=== PATIENT | male | born 1995 | race Caucasian/White ===

== ENCOUNTER 2022-09-11 21:25 | Emergency (ER) | payer OTHER, SELFPAY ==
[2022-09-11 21:26] VITALS: BP 134/96; PULSE 99; RESP 15; TEMP 36.6; O2SAT 96; BMI 28.8
--- NOTE | 2022-09-11 21:36 | EX.ED.UPPERE ---
HPI History of Present Illness Chief Complaint: Upper Extremity Injury Detail of Chief Complaint: Fall with injury to left shoulder Informant: patient Narrative Narrative: Patient presents to the emergency department with injury to his left shoulder. Patient states that he was helping a friend and fell down a flight of steps. Patient denies losing consciousness or striking his head. Patient states that he hit the top of the shoulder on a rail at the bottom of the steps. Patient is right-hand dominant. Denies other injuries. Has been ambulatory. Denies neck pain or chest pain or abdominal pain. PFSH PFSH Medical History no medical history Allergy/AdvReac Type Severity Reaction Status Date / Time Sulfa (Sulfonamide Allergy Hives Verified 09/11/22 21:29 Antibiotics) Surgical History no surgical history Social History Smoking Status: Current some day smoker tobacco type: smokeless tobacco ROS ROS ED Review of Systems ROS Unobtainable: other Constitutional Constitutional ED: Reports lethargy; Denies chills, fever(s), sweats or weight loss Eyes Eyes: Denies blurry vision, change in vision or diplopia ENT ENT ED: Denies rhinorrhea or sore throat Cardiovascular Cardiovascular: Denies chest pain, orthopnea or racing heartbeat Respiratory/Chest Respiratory/Chest: Denies cough, dyspnea, dyspnea on exertion, orthopnea or sputum Gastrointestinal Gastrointestinal: Denies abdominal pain, diarrhea, nausea or vomiting Genitourinary Genitourinary ED: Denies dysuria, hematuria or urinary frequency Musculoskeletal Musculoskeletal: Reports other Details: Left shoulder pain/injury ; Denies arthralgias, back pain, myalgias or neck pain Integumentary Denies abscess, Abrasions or rash Neurologic Neurologic: Denies headache(s) or weakness Psychiatric Psychiatric: Denies anxiety, depression or suicidal thoughts Endocrine Endocrinology: Denies polydipsia, polyphagia or polyuria Hematologic/Lymphatic Hematologic/Lymphatic: Denies easy bleeding, easy bruising or lymphadenopathy Allergic/Immunologic Allergic/Immunologic ED: Denies mouth swelling, tongue swelling or urticaria EXAM Physical Exam Const Vital Signs: 09/11/22 21:26 Temperature 97.9 F Temperature Source Temporal Pulse Rate 99 Respiratory Rate 15 Blood Pressure 134/96 H Blood Pressure Mean 108 Pulse Ox 96 Oxygen Delivery Method Room Air Positive well nourished and well developed General Appearance ED: well developed and NAD HEENT Reports TM's clear and moist mucous membranes normocephalic and atraumatic; Negative for trauma or tenderness Tympanic Membrane ED: Yes TM's clear Eyes PERRL and EOMs intact bilaterally General Eye ED: Negative for pale conjunctiva or scleral icterus Neck no lymphadenopathy, supple and no JVD General: Negative for tenderness Chest Wall inspection of chest normal and palpation of chest normal Chest: Negative for tenderness Resp normal respiratory effort and clear to auscultation bilaterally Effort and Inspection: Negative for respiratory distress or pain with movement Auscultation: Negative for rhonchi, wheezes or diminished lung sounds Cardio regular rate, regular rhythm, S1 normal heart sound, S2 normal heart sound and no murmurs Peripheral Pulses: pulses 2+ throughout GI normal to inspection, nondistended, normoactive bowel sounds, soft to palpation, non-tender, non-distended and no masses Back/Spine no CVA tenderness and no thoracic nor lumbar tenderness Extremity normal to inspection Extremity Narrative: Left shoulder-patient has erythema and some faint ecchymosis over the mid clavicle with tenderness to palpation. There are some soft tissue swelling. No pain at the glenohumeral joint. No evidence of sulcus sign or shoulder dislocation. Neurovascularly intact distally. General Extremety ED: Negative for edema General Extremity: Negative for edema Neuro oriented x3, CN's II-XII intact bilaterally, no sensory deficits noted and gait normal Sensorium / Orientation: awake, alert, oriented to person, oriented to place and oriented to time Motor Exam: strength 5/5 throughout and strength abnormal Psych mental status grossly normal Skin no rashes or lesions noted and no wounds MDM MDM MDM Narrative Medical decision making narrative: Patient presents with a fall and injury to the left shoulder. X-rays of the clavicle showed no fractures. I will give him a sling for comfort. He is to use ibuprofen or Tylenol for discomfort. He is to use ice to the area. Patient to follow-up with his primary care physician in 5 to 7 days. Radiography Diagnostic Testin view x-rays of left clavicle obtained interpreted by myself as no acute fractures or dislocation of the glenohumeral joint. Official report from radiology pending. Discharge Plan Triage Chief Complaint: Upper Extremity Injury ED Provider: Renan Wilkinson Dx/Rx/DC Orders Clinical Impression: Contusion of left shoulder Instructions: ED Contusion, Upper Extremity, ED Shoulder Contusion Referrals: Adelso Monsalve DO [Non-Staff] - 5-7 Days Activity Restrictions/Additional Instructions: Follow-up with your family doctor in 5 to 7 days. Disposition Disposition: Home, Self Care
--- NOTE | 2022-09-11 21:38 | RAD_ITS ---
EXAM: XR LEFT CLAVICLE COMPLETE, 2 OR MORE VIEWS CLINICAL INDICATION: injury TECHNIQUE: Frontal and lordotic views of the left clavicle. COMPARISON: No relevant prior studies available. FINDINGS: BONES/JOINTS: Unremarkable. No acute fracture. No subluxation. Normal alignment. Preservation of the joint space. No sclerotic or destructive changes observed. SOFT TISSUES: Unremarkable. No soft tissue swelling or gas. No radiopaque foreign body. RAD/Clavicle IMPRESSION: Negative left clavicle x-rays. Electronically Signed: Rich Loza MD at 21:57 EDT ,
== END 2022-09-11 22:13 | disposition home or self-care (01) ==
LOC: ED 22:04
PROVIDERS: Emergency Provider Emergency Medicine; Visit Provider Emergency Medicine
DX: S40.012A Contusion of left shoulder, initial encounter (principal); F17.220 Nicotine dependence, chewing tobacco, uncomplicated; W10.9XXA Fall (on) (from) unspecified stairs and steps, initial encounter
CPT/HCPCS: 73000; 99283

== ENCOUNTER → 2024-05-28 | Outpatient (CLI) | payer OTHER, SELFPAY ==
--- NOTE | 2024-05-28 14:57 | RAD_ITS ---
PROCEDURE: SHOULDER MIN 2 VIEWS REASON FOR EXAM: Pain. TECHNIQUE: Four view right shoulder series. COMPARISON: None. RAD/Shoulder min 2 Views IMPRESSION: Minimal right acromioclavicular joint degenerative changes are noted. The right glenohumeral joint demonstrates no abnormality. No fracture, dislocation, or other acute process is seen. Reading Location: [id number]
[2024-05-28 20:19] LABS: Anion Gap 16 (5-15); BUN 11 mg/dL (4-19); BUN/Creat Ratio 10.9 RATIO (10-20); Calcium,Total 9.9 mg/dL (7.6-11.0); Carbon Dioxide 25.3 mmol/L (21.0-32.0); Chloride 102 mmol/L (98-108); Cholesterol 184 mg/dL (<=200); Creatinine, Serum 0.99 mg/dL (0.70-1.20); EST Glomerular Filtration Rate 105 (>60); Glucose 82 mg/dL (70-99); HIV Nonreactive (Nonreactive); High Density Lipoprotein 43 mg/dL; Low Density Lipoprotein Calc. 114 mg/dL; Potassium 4.1 mmol/L (3.3-5.1); Sodium Level 144 mmol/L (133-145); Triglycerides 135 mg/dL; Very Low Density Lipoprotein 27 mg/dL (5-40); cholesterol:hdl ratio screen 4.27
== END | disposition home or self-care (01) ==
LOC: MTLAB 14:54
PROVIDERS: PCP Family Medicine; Referring Provider Family Medicine; Visit Provider Family Medicine
DX: Z00.00 Encounter for general adult medical examination without abnormal findings (principal); M25.511 Pain in right shoulder
CPT/HCPCS: 36415; 73030; 80048; 80061; 86703

== ENCOUNTER 2024-06-21 07:00 | Outpatient (RCR) | payer OTHER, SELFPAY ==
--- NOTE | 2024-06-07 09:50 | HP.PTEVAL ---
Patient's Visit Information Visit Information Visit Information: ELIS MARIEE is a 29 year old M referred to Physical Therapy by Dr. Jef Mishra MD with a diagnosis of B shoulder pain. Date of Evaluation: 06/07/24 Physical Therapist: Jose De Paz, СВЕТЛАНАT, OCS, CSCS Visit Plan Frequency: 2-3x /Week Duration: 4-6 Weeks Plan: 2-3x/week for 3-6 weeks for: IE HEP : sleeper stretch, wall er stretch adn wall flexion stretch 5 sec 10x 2x/day with pics. Please treat with : 1. G-h mobs to R shoulder and PROM to R shoulder for er, ir, flexion. arm pull. pec stretch to HEP 2. RC and scap stab strength progressing to I with pics. Please do both each session Subjective Subjective: h/o dislocation R shoulder in football. Kpt playing and favored L shoulder but hurt that one too. 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 Now wakes up unablee to move R arm some days. Hard to carry groceries in du to pain. Reaching across body may pop R shoulder. Ext rotation causes pain especially abducted. R handed. Regular workouts 2-3x/week, bi tri, machines. Basic ADLs all I and without pain. 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 Activities: Life pretty normal. Has fiance. No neck problems. Pain R shoulder pain.: Pain Intensity (Out of 10): 0 Pain Intensity Range: 0 and 6 Comment: comfortable at rest. Objective Objective: Walks and transfers I today without difficulty. posture is forward head adn protracted scap minimally with apparent tightness in pecs B. - labral tests, - drop arm, - ext rotation lag test, + apprhension R, - neer, - HK all B. cervical aROM full and painfree. Shoulder AROM 155 r and 165 L flexion and abduction with tightness on R. ER R 60 adn L 70 with tight feeling at end, IR 60 R and 70 L at 90 abd and PSIS IR R with pain reaching bhind. elbow and wrist arom WFL. reflexes 2/3 bi and tri B. Sensation WNL to gross light touch B UE. Strength: er R 4-, L 4, IR 4+ B, flexion and abduction 4 R adn 4+ L, no pain. elbow flexion and ext 5/5 B, wrist and thumb 5/5 B. scap satys fairly stablee on rib cage with testing B. No winging. Balance/Special Test Scores Quick DASH Score: 27.2725 Goals Goal 1:: full symmetrical AROM shoulders R to L without tightness or pain Goal Time Frame: 4-6 Weeks Goal 2:: I appropriate HEP for Rc and scap stabs to minimize future problems Goal Time Frame: 4-6 Weeks Goal 3:: quickdash score 12 or better Goal Time Frame: 4-6 Weeks Goal 4:: pt feel pain in B shoulders 75% better at 1/10 at worst Goal Time Frame: 4-6 Weeks Rehabilitation Potential Physical Therapy Diagnosis: B shoulder instability adn R sided loss of ROM effecting comfortable function. Rehabilitation Potential: Fair Anticipated Interventions Patient/Client Instruction: Educate patient on: Condition and Plan of Care For the Purpose of:: To decrease pain, To increase ROM, To improve nutrient delivery to tissue, To improve muscle performance and motor function, To increase tolerance to activity/condition/position and To improve ability of physical actions for home/community/work/leisure Therapeutic Exercise to Include: Strength training, Flexibilty training, Passive ROM and Active ROM For the Purpose of:: To decrease pain, To increase ROM, To improve nutrient delivery to tissue and To improve muscle performance and motor function Manual Therapy Techniques to Include: Mobilization, Passive ROM and Soft tissue mobilization For the Purpose of:: To decrease pain, To increase ROM, To improve nutrient delivery to tissue and To increase tolerance to activity/condition/position Text: Thank you for the opportunity to evaluate your patient. For Medicare and Medicare HMO plans, please review the plan of care and approve it. It will need to be FAXED BACK to us at [phone] for Medicare purposes. For Medicare only, by signing this I certify the plan of care. Please let me know if there are questions or concerns regarding this plan of care. Physician Signature: Date:
--- NOTE | 2024-09-01 15:43 | HP.PT.NRP ---
Patient Information Patient Information: ELIS MARIEE was seen in my office for initial evaluation on 06/07/24. The following Plan of Care was established for this patient: POC Established Initial Frequency: 2-3x /Week Initial Duration: 4-6 Weeks Anticipated Interventions Patient/Client Instruction: Educate patient on: Condition and Plan of Care For the Purpose of:: To decrease pain, To increase ROM, To improve nutrient delivery to tissue, To improve muscle performance and motor function, To increase tolerance to activity/condition/position and To improve ability of physical actions for home/community/work/leisure Therapeutic Exercise to Include: Strength training, Flexibilty training, Passive ROM and Active ROM For the Purpose of:: To decrease pain, To increase ROM, To improve nutrient delivery to tissue and To improve muscle performance and motor function Manual Therapy Techniques to Include: Mobilization, Passive ROM and Soft tissue mobilization For the Purpose of:: To decrease pain, To increase ROM, To improve nutrient delivery to tissue and To increase tolerance to activity/condition/position Last Seen Last Seen: This patient was last seen in our office 06/21/24. Pertinent comments regarding their Physical therapy will appear below: Pt seen 6 visits of POC but cancelled next one due to sickness and did not reschedule any further visits. At this point, it has been over 2 months and I will discontinue from my care. At this point I will be discontinuing this patient from physical therapy. I would be happy to see this patient again in the future if found appropriate by the physician. Thank you! Jose De Paz, DPT, OCS, CSCS Balance/Gait/Functional tests Balance/Special Test Scores Quick DASH Score: 27.9700
== END 2024-06-21 19:00 | disposition home or self-care (01) ==
LOC: PT 07:00
PROVIDERS: PCP Family Medicine; Referring Provider Family Medicine; Visit Provider Family Medicine
DX: M25.511 Pain in right shoulder (principal); M25.512 Pain in left shoulder
CPT/HCPCS: 97110; 97140; 97161

== ENCOUNTER → 2025-02-01 | Outpatient (CLI) | payer OTHER, SELFPAY ==
--- NOTE | 2025-02-01 11:34 | RAD_ITS ---
PROCEDURE: ANKLE MIN 3 VIEWS 02/01/2025 REASON FOR EXAM: PAIN TECHNIQUE: Procedure Code: RADANK Modality: DX Procedure: ANKLE MIN 3 VIEWS Laterality: Right COMPARISON: none FINDINGS: Possible chronic deformity of the medial malleolus. No acute fractures or dislocations. No significant degenerative changes. No large joint effusion. No acute soft tissue abnormalities. No radiographic foreign body. RAD/Ankle min 3 Views IMPRESSION: Possible chronic deformity of the medial malleolus. No acute fractures or disl ocations. Reading Location: [id number]
== END | disposition home or self-care (01) ==
LOC: MTRAD 11:34
PROVIDERS: PCP Family Medicine; Referring Provider Nurse Practitioner Family; Visit Provider Nurse Practitioner Family
DX: M25.571 Pain in right ankle and joints of right foot (principal)
CPT/HCPCS: 73610

== ENCOUNTER → 2025-03-10 | Outpatient (CLI) | payer OTHER, SELFPAY ==
--- NOTE | 2025-03-10 09:01 | MRI_ITS ---
PROCEDURE: LOWER EXT JOINT ONLY (ROUTINE) 03/10/2025 REASON FOR EXAM: RIGHT ANKLE, OLD FRACTURE TECHNIQUE: MRI of the right lower Extremity. Multiplanar and multisequence images were obtained without IV contrast administration. COMPARISON: COMPARISON : Right ankle radiographs from 01 February 2025 FINDINGS: Bone Marrow: No marrow edema. Inferior malleolar corticated body which either represents an unfused ossification center or chronic, unfused fracture fragment. Mild degenerative changes Effusion: No significant effusion. Soft Tissues: The soft tissues are within normal limits. Ligaments and Tendons: Small amount of fluid is noted adjacent to the tibialis posterior tendon without complete or retracted tear. The Achilles tendon is intact. MRI/Lower Ext Joint Only (Routine) IMPRESSION: 1. No evidence of acute fracture with medial malleolar findings that suggest a chronic, unfused ossification center or remote ununited fracture. 2. Possible tibialis posterior tenosynovitis. No evidence of complete or retr acted tear. Reading Location: [id number]
--- OUTSIDE RECORDS SUMMARY | 2025-03-10 09:19 | XMS RPT_ITS | CCD ---
Author Organization [facility] Inform ion Partnership [facility] Care Team Providers Care Compotype Operator Name Role Phone Danica WILKINSON, Dr. Fuchs Primary Care Provider [phone] Danica WILKINSON, Dr. Fuchs Attending Provider Danica WILKINSON, Dr. Fuchs Referring Provider Jef Mishra Referring Unavailable Danica, Jef Attending Unavailable Jef Mishra Primary Care Unavailable Jef Mishra Primary Care Unavailable Jef Mishra Referring Unavailable Danica, Jef Attending Unavailable Danica, Jef Primary Care Unavailable Danielle DRAIN TECHNICIAN, Amy Referring Unavailable Danielle DRAIN TECHNICIAN, Amy Attending Unavailable Allergies Allergy Classification Reported Allergen(s) Allergy Type Date of Onset Reaction(s) Facility (3 sources) Sulfonamides (Antibiotic) Allergy to substance 3 [facility] (1 source) Sulfonamides (Antibiotic) Drug allergy (disorder) 3 [facility] Repository Problems Active Problems Problem Classification Problem Date Documented Da te Episodic/Chronic Other non-traumatic joint disorders (1 source) Pain in right ankle and joints of right foot; Translations: [Pain in right ankle and joints of right foot] Onset: 02-01-2025 Episodic Superficial injury; contusion (3 sources) Contusion of shoulder region; Translations: [Contusion of left shoulder, initial encounter] 09-11-2022 Episodic Past or Other Problems Problem Classification Problem Date Documented Da te Episodic/Chronic Other non-traumatic joint disorders (1 source) Pain in right shoulder; Translations: [Pain in right shoulder] Onset: 09-06-2024 Episodic Other non-traumatic joint disorders (1 source) Pain in left shoulder; Translations: [Pain in left shoulder] Onset: 09-06-2024 Episodic Results Test Name Value Interpretation Reference Range Facil ity Ankle min 3 Viewson 02-02-20 25 Ankle min 3 Views [facility] Imaging Services [address] [place] [address] Ankle min 3 Views MR#: [id number] Acct: [id number] Name: ELIS MARIEE Rep #: [id number] : 1995 M 29 From: Daniel Bianchi PCP: Dr. Jef Mishra MD Status: REG CLI Study: Ankle min 3 Views Date of Exam: 02/01/25 Exam# [id number] Ordering Dr: Amy Santos NP DRAIN TECHNICIAN-Thor PROCEDURE: ANKLE MIN 3 VIEWS 02/01/2025 REASON FOR EXAM: PAIN TECHNIQUE: Procedure Code: RADANK Modality: DX Procedure: ANKLE MIN 3 VIEWS Laterality: Right COMPARISON: none FINDINGS: Possible chronic deformity of the medial malleolus. No acute fractures or dislocations. No significant degenerative changes. No large joint effusion. No acute soft tissue abnormalities. No radiographic foreign body. RAD/Ankle min 3 Views IMPRESSION: Possible chronic deformity of the medial malleolus. No acute fractures or dislocations. Reading Location: [facility] CC: DRAIN TECHNICIAN-C Amy Santos; Dr. Jef Mishra MD Consumer Electronic Retail Specialist: Signed Normal [facility] Inital Evaluation (1) - PTon 06-07-2024 Inital Evaluation (1) - PT [facility] Physical Therapy [facility] [address] [place] [address] [address] [place] [address] / REHABILITATION SERVICES INITIAL EVALUATION MR#: [id number] Acct: [id number] Name: ELIS MARIEE Rep #: [id number] : 1995 29 From: Jose De Paz DPT, OCS, CSCS Referring Dr.: Dr. Jef Mishra MD Status: REG RCR Insurance: [employer] Patient's Visit Information Visit Information Visit Information: ELIS MARIEE is a 29 year old M referred to Physical Therapy by Dr. Jef Mishra MD with a diagnosis of B shoulder pain. Date of Evaluation: 06/07/24 Physical Therapist: Jose Baldev, DPT, OCS, CSCS Visit Plan Frequency: 2-3x /Week Duration: 4-6 Weeks Plan: 2-3x/week for 3-6 weeks for: IE HEP : sleeper stretch, wall er stretch adn wall flexion stretch 5 sec 10x 2x/day with pics. Please treat with : 1. G-h mobs to R shoulder and PROM to R shoulder for er, ir, flexion. arm pull. pec stretch to HEP 2. RC and scap stab strength progressing to I with pics. Please do both each session Subjective Subjective: h/o dislocation R shoulder in football. Kpt playing and favored L shoulder but hurt that one too. 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 Now wakes up unablee to move R arm some days. Hard to carry groceries in du to pain. Reaching across body may pop R shoulder. Ext rotation causes pain especially abducted. R handed. Regular workouts 2-3x/week, bi tri, machines. Basic ADLs all I and without pain. 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 Activities: Life pretty normal. Has fiance. No neck problems. Pain R shoulder pain.: Pain Intensity (Out of 10): 0 Pain Intensity Range: 0 and 6 Comment: comfortable at rest. Objective Objective: Walks and transfers I today without difficulty. posture is forward head adn protracted scap minimally with apparent tightness in pecs B. - labral tests, - drop arm, - ext rotation lag test, + apprhension R, - neer, - HK all B. cervical aROM full and painfree. Shoulder AROM 155 r and 165 L flexion and abduction with tightness on R. ER R 60 adn L 70 with tight feeling at end, IR 60 R and 70 L at 90 abd and PSIS IR R with pain reaching bhind. elbow and wrist arom WFL. reflexes 2/3 bi and tri B. Sensation WNL to gross light touch B UE. Strength: er R 4-, L 4, IR 4+ B, flexion and abduction 4 R adn 4+ L, no pain. elbow flexion and ext 5/5 B, wrist and thumb 5/5 B. scap satys fairly stablee on rib cage with testing B. No winging. Balance/Special Test Scores Quick DASH Score: 27.2725 Goals Goal 1:: full symmetrical AROM shoulders R to L without tightness or pain Goal Time Frame: 4-6 Weeks Goal 2:: I appropriate HEP for Rc and scap stabs to minimize future problems Goal Time Frame: 4-6 Weeks Goal 3:: quickdash score 12 or better Goal Time Frame: 4-6 Weeks Goal 4:: pt feel pain in B shoulders 75% better at 1/10 at worst Goal Time Frame: 4-6 Weeks Rehabilitation Potential Physical Therapy Diagnosis: B shoulder instability adn R sided loss of ROM effecting comfortable function. Rehabilitation Potential: Fair Anticipated Interventions Patient/Client Instruction: Educate patient on: Condition and Plan of Care For the Purpose of:: To decrease pain, To increase ROM, To improve nutrient delivery to tissue, To improve muscle performance and motor function, To increase tolerance to activity/condition/po sition and To improve ability of physical actions for home/community/work/l eisure Therapeutic Exercise to Include: Strength training, Flexibilty training, Passive ROM and Active ROM For the Purpose of:: To decrease pain, To increase ROM, To improve nutrient delivery to tissue and To improve muscle performance and motor function Manual Therapy Techniques to Include: Mobilization, Passive ROM and Soft tissue mobilization For the Purpose of:: To decrease pain, To increase ROM, To improve nutrient delivery to tissue and To increase tolerance to activity/condition/po sition Text: Thank you for the opportunity to evaluate your patient. For Medicare and Medicare HMO plans, please review the plan of care and approve it. It will need to be FAXED BACK to us at [phone] for Medicare purposes. For Medicare only, by signing this I certify the plan of care. Please let me know if there are questions or concerns regarding this plan of care. Physician Signature: Date : 06/07/24 0950 CC: Dr. Jef Mishra MD EBG Signed Normal [facility] Anion gap in Serum or Plasma Ordered By: Jef Mishra on 05-28-2024 Anion gap [Moles/Vol] 16 mmol/L High 5-15 [facility] BUN/creatinine ratioOrdered By: Jef Mishra on 05-28-2024 Urea nitrogen/Creatinine [Mass ratio] 10.9 mg/mg - [facility] Basic Metabolic Profile (BMP )on 05-28-2024 BUN/CRE 10.9 RATIO Normal - [facility] Comment on above: Performed By: #### L 3890.6006, L500.4100, L500.2500 #### [facility] [address] [place], [address] Calcium [Mass/Vol] 9.9 mg/dL Normal 7.6-11.0 [facility] Comment on above: Performed By: #### L 3890.6006, L500.4100, L500.2500 #### [facility] [address] [place], [address] Chloride [Moles/Vol] 102 mmol/L Normal 98-108 [facility] Comment on above: Performed By: #### L 3890.6006, L500.4100, L500.2500 #### [facility] [address] [place], [address] CO2 [Moles/Vol] 25.3 mmol/L Normal 21.0-32.0 [facility] Comment on above: Performed By: #### L 3890.6006, L500.4100, L500.2500 #### [facility] [address] [place], [address] Creatinine [Mass/Vol] 0.99 mg/dL Normal 0.70-1.20 [facility] Comment on above: Performed By: #### L 3890.6006, L500.4100, L500.2500 #### [facility] [address] [place], [address] GAP 16 High - [facility] Comment on above: Performed By: #### L 3890.6006, L500.4100, L500.2500 #### [facility] [address] [place], [address] GFR/1.73 sq M.predicted among non-blacks MDRD (S/P/Bld) [Vol rate/Area] 105 mL/min/{1.73_m2} Normal >60 [facility] Comment on above: Result Comment: mL/m in/1.73m2 CKD-EPI Creatinine Equation (2020) Performed By: #### L 3890.6006, L500.4100, L500.2500 #### [facility] [address] [place], [address] Glucose [Mass/Vol] 82 mg/dL Normal 70-99 [facility] Comment on above: Performed By: #### L 3890.6006, L500.4100, L500.2500 #### [facility] [address] [place], [address] Potassium [Moles/Vol] 4.1 mmol/L Normal 3.3-5.1 [facility] Comment on above: Performed By: #### L 3890.6006, L500.4100, L500.2500 #### [facility] [address] [place], [address] Sodium [Moles/Vol] 144 mmol/L Normal 133-145 [facility] Comment on above: Performed By: #### L 3890.6006, L500.4100, L500.2500 #### [facility] [address] [place], [address] Urea nitrogen [Mass/Vol] 11 mg/dL Normal 4-19 [facility] Comment on above: Performed By: #### L 3890.6006, L500.4100, L500.2500 #### [facility] [address] [place], [address] Calculated very low density lipoprotein (VLDL) cholesterol measurementOrdered By: Jef Mishra on 05-28-2024 Calculated very low density lipoprotein (VLDL) cholesterol measurement 27 mg/dL 5-40 [facility] VLDL Cholesterol 27 mg/dL 5-40 [facility] Carbon dioxide, total [Moles /volume] in Central venous bloodOrdered By: Jef Mishra on 05-28-2024 CO2 [Moles/Vol] 25.3 mmol/L 21.0-32.0 [facility] Chloride assayOrdered By: Gonzales Mishra on 05-28-2024 Chloride [Moles/Vol] 102 mmol/L 98-108 [facility] GFR/1.73 sq M.predicted lu g non-blacks MDRD (S/P/Bld) [Vol rate/Area]Ordered By: Jef Mishra on 05-28-2024 Estimated GFR (MDRD) Non-Af Amer [address] [facility] Comment on above: mL/min/1.73m2 CKD-EP I Creatinine Equation (2020) Glomerular filtration rate ( GFR) estimation/1.73 sq m using serum, plasma, or whole bOrdered By: Jef Mishra on 05-28-2024 GFR/1.73 sq M.predicted among non-blacks MDRD (S/P/Bld) [Vol rate/Area] 105 mL/min/{1.73_m2} >60 [facility] Comment on above: mL/min/1.73m2 CKD-EP I Creatinine Equation (2020) L3890.6006on 05-28-2024 HIV Non-Reactive Normal Nonreactive [facility] Comment on above: Result Comment: Non- Reactive Reactive Repeatedly reactive samples must be confirmed according to CDC recommended confirmatory algorithms. The subresults for either HIVAG or AHIV can be used as an aid in the selection of the confirmation algorithm for reactive samples. Send out specimens with Reactive results to [facility] for confirmation. Order the HIV antibody detection and differentiation: lc#[id number] Performed By: #### L 3890.6006, L500.4100, L500.2500 #### [facility] [place], [address] LDL calc ser/plasOrdered By: Jef Mishra on 05-28-2024 Cholesterol in LDL [Mass/Vol] 114 mg/dL [facility] Comment on above: Konsigvhuo=631-933 m g/dL & Higher Hlrg=020 mg/dL or greater LDL Cholesterol, Calculated 114 mg/dL [facility] Comment on above: Tkjucrzsyf=091-894 m g/dL & Higher Kloe=097 mg/dL or greater Lipid Profileon 05-28-2024 CHOL:HDL 4.[address] [facility] Comment on above: Performed By: #### L 3890.6006, L500.4100, L500.2500 #### [facility] [address] [place], [address] Cholesterol [Mass/Vol] 184 mg/dL Normal <=200 [facility] Comment on above: Result Comment: Chol esterol level, Desirable <200 mg/dL Borderline high cholesterol 200-239 mg/dL High cholesterol >=240 mg/dL Recommendations of the NCEP Adult Treatment Panel for the following risk-cutoff thresholds for the [place] population. Performed By: #### L 3890.6006, L500.4100, L500.2500 #### [facility] [address] [place], [address] Cholesterol in HDL [Mass/Vol] 43 mg/dL Normal [facility] Comment on above: Result Comment: Ariana onal Cholesterol Education Program (NCEP) guidelines: <40 mg/dL: Low HDL-cholesterol (major risk factor for CHD) >= 60 mg/dL: High HDL-cholesterol (negative risk factor for CHD) HDL-cholesterol is affected by a number of factors, e.g. smoking, exercise, hormones, sex and age. Performed By: #### L 3890.6006, L500.4100, L500.2500 #### [facility] [address] [place], [address] Cholesterol in LDL [Mass/Vol] 114 mg/dL Normal [facility] Comment on above: Result Comment: Bord yzrqra=086-474 mg/dL Higher Itfp=924 mg/dL or greater Performed By: #### L 3890.6006, L500.4100, L500.2500 #### [facility] [address] [place], [address] Cholesterol in VLDL [Mass/Vol] 27 mg/dL Normal 5-40 [facility] Comment on above: Performed By: #### L 3890.6006, L500.4100, L500.2500 #### [facility] [address] [place], [address] Triglyceride [Mass/Vol] 135 mg/dL Normal [facility] Comment on above: Result Comment: The drugs N-Acetylcysteine and Metamizole may falsely depress this assay. Normal range: <150 mg/dL Borderline High: 150-199 mg/dL High: 200-499 mg/dL Very High: >500 mg/dL Performed By: #### L 3890.6006, L500.4100, L500.2500 #### [facility] [address] [place], [address] No Panel InformationOrdered By: Jef Mishra on 05-28-2024 HIV (1&2) Antibody Non-Reactive Nonreactive [facility] Comment on above: Non-ReactiveReactive Repeatedly reactive samples must be confirmed according to CDC recommended confirmatory algorithms. The subresults for either HIVAG or AHIV can be used as an aid in the selection of the confirmation algorithm for reactive samples.Send out specimens with Reactive results to [facility] for confirmation.Order the HIV antibody detection and differentiation: #[id number] Potassium (Unsp spec) [Mass/ Vol]Ordered By: Jef Mishra on 05-28-2024 Potassium [Moles/Vol] 4.1 mmol/L 3.3-5.1 [facility] Potassium measurement (mass/ volume)Ordered By: Jef Mishra on 05-28-2024 Potassium (Unsp spec) [Mass/Vol] 4.1 mmol/L 3.3-5.1 [facility] Screening total cholesterol/ high density lipoprotein (HDL) cholesterol ratioOrdered By: Jef Mishra on 05-28-2024 Cholesterol.total/Chol esterol in HDL [Mass ratio] 4.27 {ratio} [facility] Serum creatinine measurement (mass/volume)Ordered By: Jef Mishra on 05-28-2024 Creatinine [Mass/Vol] 0.99 mg/dL 0.70-1.20 [facility] Serum glucose measurement (m ass/volume)Ordered By: Jef Mishra on 05-28-2024 Glucose [Mass/Vol] 82 mg/dL 70-99 [facility] Serum or plasma calcium pramod urement (mass/volume)Ordered By: Jef Mishra on 05-28-2024 Calcium [Mass/Vol] 9.9 mg/dL 7.6-11.0 [facility] Serum or plasma cholesterol in HDL measurement (mass/volume)Ordered By: Jef Mishra on 05-28-2024 Cholesterol in HDL [Mass/Vol] 43 mg/dL >40 [facility] Comment on above: National Cholesterol Education Program (NCEP) guidelines:<40 mg/dL: Low HDL-cholesterol (major risk factor for CHD)>= 60 mg/dL: High HDL-cholesterol (negative risk factor for CHD)HDL-cholesterol is affected by a number of factors, e.g. smoking, exercise, hormones, sex and age. Serum or plasma cholesterol measurement (mass/volume)Ordered By: Jef Mishra on 05-28-2024 Cholesterol [Mass/Vol] 184 mg/dL <201 [facility] Comment on above: Cholesterol level, D esirable <200 mg/dLBorderline high cholesterol 200-239 mg/dLHigh cholesterol >=240 mg/dLRecommendations of the NCEP Adult Treatment Panel for the following risk-cutoff thresholds for the [place] population. Serum or plasma urea nitroge n measurement (mass/volume)Ordered By: Jef Mishra on 05-28-2024 Urea nitrogen [Mass/Vol] 11 mg/dL 4-19 [facility] Shoulder min 2 Viewson 05-28 Shoulder min 2 Views [facility] Imaging Services [address], [place] [address] Shoulder min 2 Views MR#: [id number] Acct: [id number] Name: ELIS MARIEE Rep #: [id number] : 1995 M 29 From: Mckinley Bianchi PCP: Dr. Jef Mishra MD Status: REG CLI Study: Shoulder min 2 Views Date of Exam: 05/28/24 Exam# [id number] Ordering Dr: Jef Mishra MD PROCEDURE: SHOULDER MIN 2 VIEWS REASON FOR EXAM: Pain. TECHNIQUE: Four view right shoulder series. COMPARISON: None. RAD/Shoulder min 2 Views IMPRESSION: Minimal right acromioclavicular joint degenerative changes are noted. The right glenohumeral joint demonstrates no abnormality. No fracture, dislocation, or other acute process is seen. Reading Location: [address] CC: Dr. Jef Mishra MD Consumer Electronic Retail Specialist: Signed Normal [facility] Sodium levelOrdered By: Jef Mishra on 05-28-2024 Sodium [Moles/Vol] 144 mmol/L 133-145 [facility] Triglycerides measurementOrd ered By: Jef Mishra on 05-28-2024 Triglyceride [Mass/Vol] 135 mg/dL <199 [facility] Comment on above: The drugs N-Acetylcy steine and Metamizole may falsely depress this assay. Normal range: <150 mg/dLBorderline High: 150-199 mg/dLHigh: 200-499 mg/dLVery High: >500 mg/dL Vital Signs Date Time Vital Sign Value Performing Clinician Miranda davis 09-11-2022 21:26-0400 Body height 167.64 cm [facility] 09-11-2022 21:26-0400 Body mass index (BMI) [Ratio] 28.8 kg/m2 [facility] 09-11-2022 21:26-0400 Body temperature 97.9 [degF] [facility] 09-11-2022 21:26-0400 Body weight 81.19 kg [facility] 09-11-2022 21:26-0400 Diastolic blood pressure 96 mm[Hg] [facility] 09-11-2022 21:26-0400 Heart rate 99 /min [facility] 09-11-2022 21:26-0400 Respiratory rate 15 /min [facility] 09-11-2022 21:26-0400 SaO2% (BldA) [Mass fraction] 96 % [facility] 09-11-2022 21:26-0400 Systolic blood pressure 134 mm[Hg] [facility] Encounters Encounter Date Encounter Type Care Provider Facility Start: 02-01-2025 ambulatory Jef Mishra Facility:[facility] Start: 06-21-2024 End: 06-21-[address] Jef Mishra MD Work Phone: [facility] Work Phone: Start: 06-21-2024 End: 06-21-[address] Jef Mishra MD -Physical Therapy Work Phone: Start: 06-10-2024 Encounter for genera l adult medical examination without abnormal findings Jef Mishra [facility] Start: 06-09-[address] Jef morales MD -Physical Therapy Work Phone: Start: 05-28-2024 End: 05-28-[address] Jef Mishra MD Work Phone: [facility] Work Phone: Start: 05-28-2024 End: 05-28-[address] Jef Mishra MD -Laboratory, [place] Work Phone: Start: 05-28-2024 End: 05-28-2024 ambulatory Jef Mishra Facility:[facility] Start: 09-11-2022 End: 09-11-2022 Emergency department patient visit [facility]-Emergency Department Procedures Date Procedure Procedure Detail Performing Clinician Start: 05-28-2024 Plain X-ray of shoulder Dr. Jef Mishra MD Work Phone: Start: 09-11-2022 Plain X-ray of clavicle Plan of Treatment Date Care Activity Detail Author Patient Education ED Contusion, Upper Extremity ED Shoulder Contusion [facility] Work Phone: Patient referral [facility] Work Phone: Payers Date Payer Category Payer Self-pay 2022 [facility] ( and others) [id number] Unknown [id number] Unknown [id number] Unknown [id number] Social History Date Type Detail Facility Start: 09-11-2022 Tobacco smoking stat [facility] Unknown if ever smoked [facility] Start: 1995 Sex Assigned At Male [facility] Start: 09-11-2022 Tobacco smoking stat [facility] Current some day smoker [facility] Start: 06-10-2024 Sex Male (finding) [facility] Discharge summary 09-01-2024 Note Date & Type Note Facility 09-01-2024 Discharge summary Note Date/Time September 01, 2024 3:43pm [facility] [address] [place] [address]. [address] [place] [address] / REHABILITATION SERVICES DISCHARGE SUMMARY MR#: [id number] Acct: [id number] Name: ELIS MARIEE Rep #: [id number] : 1995 29 From: Jose De Paz DPT, OCS, CSCS Referring Dr.: Dr. Jef Mishra MD Status: REG R Insurance: [employer] S[employer]F [employer] INSURANCE Patient Information Patient Information: ELIS MARIEE was seen in my office for initial evaluation on 06/07/24. The following Plan of Care was established for this patient: POC Established Initial Frequency: 2-3x /Week Initial Duration: 4-6 Weeks Anticipated Interventions Patient/Client Instruction: Educate patient on: Condition and Plan of Care For the Purpose of:: To decrease pain, To increase ROM, To improve nutrient delivery to tissue, To improve muscle performance and motor function, To increase tolerance to activity/condition/position and To improve ability of physical actions for home/community/work/leisure Therapeutic Exercise to Include: Strength training, Flexibilty training, PassiveROM and Active ROM For the Purpose of:: To decrease pain, To increase ROM, To improve nutrient delivery to tissue and To improve muscle performance and motor function Manual Therapy Techniques to Include: Mobilization, Passive ROM and Soft tissue mobilization For the Purpose of:: To decrease pain, To increase ROM, To improve nutrient delivery to tissue and To increase tolerance to activity/condition/position Last Seen Last Seen: This patient was last seen in our office 06/21/24. Pertinent comments regardingtheir Physical therapy will appear below: Pt seen 6 visits of POC but cancelled next one due to sickness and did not reschedule any further visits. At this point, it has been over 2 months and I will discontinue from my care. At this point I will be discontinuing this patient from physical therapy. I would be happy to see this patient again in the future if found appropriate by the physician. Thank you! Jose De Paz, DPT, OCS, CSCS Balance/Gait/Functional tests Balance/Special Test Scores Quick DASH Score: 27.2725 <Electronically signed by Jose De Paz DPT, OCS, CSCS> 09/01/24 1543 CC: Dr. Jef Mishra MD ~ EBG Signed [facility] Work Phone: Discharge summary 09-01-2024 Note Date & Type Note Facility 09-01-[address] [facility] Radiology Diagnostic study note 05-28-2024 Note Date & Type Note Facility 05-28-2024 Radiology Diagnostic study note [facility] Imaging Services [address] [place] [address] Shoulder min 2 Views MR#: [id number] Acct: [id number] Name: ELIS MARIEE Rep #: [id number] : 1995 M 29 From: Patricio Biggs MD PCP: Dr. Jef Mishra MD Status: REG C TRAY Study:Shoulder min 2 Views Date of Exam: 05/28/24 Exam# [id number] Ordering Dr: Jef Mishra MD PROCEDURE: SHOULDER MIN 2 VIEWS REASON FOR EXAM: Pain. TECHNIQUE: Four view right shoulder series. COMPARISON: None. RAD/Shoulder min 2 Views IMPRESSION: Minimal right acromioclavicular joint degenerative changes are noted. The right glenohumeral joint demonstrates no abnormality. No fracture, dislocation, or other acute process is seen. Reading Location: [address] CC: Dr. Jef Mishra MD ~ Consumer Electronic Retail Specialist: Signed [facility] Discharge instructions 09-11-2022 Note Date & Type Note Facility 09-11-2022 Hospital Discharg e instructions Additional Instructions Follow-up with your family doctor in [address] [facility] Work Phone: Evaluation note Note Date & Type Note Facility Evaluation note No assessment information availa ble [facility] Work Phone: Reason for referral (narrative) Note Date & Type Note Facility Reason for referral (narrative) No reason for referral information available [facility] Work Phone: Chief Complaint and Reason for Visit Chief Complaint LEFT SHOULDER PAIN R /T FALL Chief Complaint Admit Date BILATERAL SHOULDER PAIN. RX HERE May 222024 7:00am Chief Complaint Admit Date BILATERAL SHOULDER PAIN. RX HERE May 242024 7:00am Advance Directives No Advanced Directives Records Found Advance Directive Response Recorded Date/ Time Living Will No September 11, 2022 9:52pm Power of Special Education Resource Room Teacher No September 11 9:52pm Summary Purpose Family History No Family History Records Found Additional Source Comments Care Teams (unrecognized sec tion and content) Team Status: Active Member Role Status Dates No Primary Care Physician Primary Care Provider Active Team Status: Inactive Member Role Status Dates Dr. Renan Wilkinson DO Emergency Provider Active No Primary Care Physician Primary Care Provider Active Team Status: Active Member Role Status Dates Dr. Jef Mishra MD Primary Care Provider Active Team Status: Inactive Member Role Status Dates Dr. Jef Mishra MD Primary Care Provider Active Start: May 28, 2024 End: May 28, 2024 Dr. Jef Mishra MD Attending Provider Active Start: May 28, 2024 End: May 28, 2024 Dr. Jef Mishra MD Referring Provider Active Start: May 28, 2024 End: May 28, 2024 Team Status: Active Member Role Status Dates Dr. Jef Mishra MD Primary Care Provider Active Start: June 09, 2024 Dr. Jef Mishra MD Attending Provider Active Start: June 09, 2024 Dr. Jef Mishra MD Referring Provider Active Start: June 09, 2024 Team Status: Inactive Member Role Status Dates Dr. Jef Mishra MD Primary Care Provider Active Start: June 21, 2024 End: June 21, 2024 Dr. Jef Mishra MD Attending Provider Active Start: June 21, 2024 End: June 21, 2024 Dr. Jef Mishra MD Referring Provider Active Start: June 21, 2024 End: June 21, 2024 Goals (unrecognized section and content) Goals may be documented in a n alternate sectionGoals may be documented in an alternate sectionGoals may be documented in an alternate section (unrecognized sect ion and content) No Status Records Found INFORMATION SOURCE (unrecogn ized section and content) DATE CREATED AUTHOR 02/02/2025 [facility] FOR RECORDS PERTAINING TO PATIENTS WHO ARE OR HAVE BEEN ENROLLED IN A CHEMICAL DEPENDENCY/SUBSTANCEABUSE PROGRAM, SOME INFORMATION MAY BE OMITTED. This clinical summary was aggregated from multiple sources. Caution should be exercised in using it in the provision of clinical care. This summary normalizes information from multiple sources, and as a consequence, information in this document may materially change the coding, format and clinical context of patient data. In addition, data may be omitted in some cases. CLINICAL DECISIONS SHOULD BE BASED ON THE PRIMARY CLINICAL RECORDS. [employer] provides no warranty or guarantee of the accuracy or completeness of information in this document.
== END | disposition home or self-care (01) ==
LOC: MRI 08:50
PROVIDERS: PCP Family Medicine; Referring Provider Podiatrist; Visit Provider Podiatrist
DX: M25.571 Pain in right ankle and joints of right foot (principal); M25.871 Other specified joint disorders, right ankle and foot; M76.821 Posterior tibial tendinitis, right leg
CPT/HCPCS: 73721